=== PATIENT | male | born 1985 | race Two or more races ===

== ENCOUNTER 2018-08-09 08:04 | Emergency (ER) | payer MEDICAID ==
[~2018-08-09] VITALS: Ht 175.3 cm; Wt 97.0 kg
[2018-08-09] MEDS ORDERED: normal saline 1000ML IV soln IVB ONE (08:40)
[2018-08-09] MEDS ORDERED: ondansetron/PF 4mg/2ml inj IV ONE (08:40)
[2018-08-09 09:17] LABS: BASOPHILS % (AUTO) 0.2 % (0-1); EOSINOPHILS % (AUTO) 0 % (0-6); HEMATOCRIT 46.1 % (42.0-52.0); HEMOGLOBIN 15.9 g/dl (14.0-17.9); LYMPHOCYTES # (AUTO) 0.6 X10'3 (1.1-4.8); LYMPHOCYTES % (AUTO) 9.9 % (21-51); MEAN CORPUSCULAR HEMOGLOBIN 29.8 PG (27.0-31.0); MEAN CORPUSCULAR HGB CONC 34.4 % (33.0-36.5); MEAN CORPUSCULAR VOLUME 86.7 FL (78-98); MEAN PLATELET VOLUME 9.2 FL (7.4-10.4); MONOCYTES # (AUTO) 0.5 X10'3 (0-0.9); MONOCYTES % (AUTO) 8.2 % (2-12); NEUTROPHILS % (AUTO) 81.7 % (42-75); PLATELET COUNT 175 X10'3 (140-440); RED BLOOD COUNT 5.32 X10'6 (4.70-6.10); RED CELL DISTRIBUTION WIDTH 12.5 % (11.5-14.5); WHITE BLOOD COUNT 6.1 X10'3 (4.5-11.0)
[2018-08-09 09:22] LABS: CLARITY,URINE CLEAR (Clear); COLOR,URINE YELLOW (Yellow); GLUCOSE, URINE NEGATIVE (Neg); KETONES,URINE 15 mg/dl (Neg); LEUKOCYTE ESTERASE ,URINE NEGATIVE (Neg); NITRITES, URINE NEGATIVE (Neg); OCCULT BLOOD,URINE NEGATIVE (Neg); PROTEIN,URINE 30 mg/dl (Neg); UROBILINOGEN,URINE 0.2 E.U/dL (0.2-1.0)
[2018-08-09 09:23] LABS: UA COLLECTION TYPE CLN CATCH MIDSTREAM
[2018-08-09 09:33] LABS: ALANINE AMINOTRANSFERASE 39 U/L (12-78); ALBUMIN/GLOBULIN RATIO 0.9 (1.1-1.5); ALKALINE PHOSPHATASE 83 IU/L (46-116); ANION GAP 15 (8-16); ASPARTATE AMINO TRANSFERASE 19 U/L (10-37); BILIRUBIN,TOTAL 0.6 MG/DL (0.1-1.0); BLOOD UREA NITROGEN 11 MG/DL (7-18); BUN/CREATININE RATIO 9.2 (5.4-32.0); CALCIUM 8.8 MG/DL (8.5-10.1); CHLORIDE 98 MMOL/L (99-107); GLUCOSE 106 MG/DL (70-104); LIPASE 91 U/L (73-393); POTASSIUM 3.2 MMOL/L (3.5-5.1); SODIUM 139 MMOL/L (135-145); TOTAL CARBON DIOXIDE 25.9 MMOL/L (24-32); TOTAL PROTEIN 8.4 G/DL (6.4-8.2); eGFR 69 ML/MIN
[2018-08-09 09:34] LABS: PROTHROMBIN TIME 10.4 SECONDS (9.0-12.0)
[2018-08-09 09:36] LABS: WBC,URINE 0-4 /HPF (0-4)
[2018-08-09 09:37] LABS: BACTERIA,URINE NONE SEEN /HPF (Neg); MUCUS STRANDS FEW /LPF (Neg); RBC,URINE NONE SEEN /HPF (0-2); SQUAMOUS EPITHELIAL CELL,UR FEW /LPF (FEW)
[2018-08-09] MEDS ORDERED: potassium Cl 20 mEq SR tablet PO ONE (09:50)
[2018-08-09] MEDS ORDERED: ONDA4TAB6 PO (09:56)
[2018-08-09] MEDS ORDERED: HYDR-4353 PO (09:56)
[2018-08-09 10:03] VITALS: BP 130/95
== END 2018-08-09 10:04 | disposition home or self-care (01) ==
LOC: ER 08:04
DX: R19.7 Diarrhea, unspecified (principal); F17.200 Nicotine dependence, unspecified, uncomplicated; R10.84 Generalized abdominal pain
CPT/HCPCS: 36415; 80053; 81001; 83690; 85025; 85610; 96361; 96374; 99283; J2405; J7030; 99284

== ENCOUNTER 2021-03-21 02:58 | Emergency (ER) | payer MEDICAID, OTHER ==
[~2021-03-21] VITALS: Ht 172.7 cm; Wt 70.0 kg
[~2021-03-21 02:58] MED LIST: ONDA4TAB6 PO
[2021-03-21 03:12] VITALS: BP 135/76
== END 2021-03-21 03:53 ==
LOC: ER 02:58
DX: S00.01XA Abrasion of scalp, initial encounter (principal); S80.212A Abrasion, left knee, initial encounter; S80.211A Abrasion, right knee, initial encounter; R07.89 Other chest pain; Z72.89 Other problems related to lifestyle; Z79.899 Other long term (current) drug therapy; V89.2XXA Person injured in unspecified motor-vehicle accident, traffic, initial encounter; Y93.89 Activity, other specified; Y92.89 Other specified places as the place of occurrence of the external cause; Y99.8 Other external cause status
CPT/HCPCS: 71046; 99283